=== PATIENT | male | born 1965 | race Caucasian/White ===

== ENCOUNTER 2017-11-30 17:18 | Emergency (ER) | payer OTHER ==
[~2017-11-30] VITALS: Ht 188 cm; Wt 97.5 kg
[2017-11-30 20:51] VITALS: BP 158/77
== END 2017-11-30 20:53 | disposition home or self-care (01) ==
LOC: ER 17:18
DX: B02.29 Other postherpetic nervous system involvement (principal); I10 Essential (primary) hypertension
CPT/HCPCS: 99283